=== PATIENT | female | born 1995 | race Hispanic/Latino ===

== ENCOUNTER 2025-04-17 06:41 | Emergency (ER) | payer SELFPAY ==
[~2025-04-17] VITALS: Ht 152.4 cm; Wt 88.9 kg
[2025-04-17 07:01] LABS: IMMATURE GRANULOCYTE ABSOLUTE 0.02 K/uL (0-1); NUCLEATED RED BLOOD CELLS 0.0 % (0.0-0.19); PLATELET COUNT (AUTO) 237 K/uL (130-400); RED BLOOD CELL COUNT(AUTO) 4.91 MIL/uL (4.00-5.50); RED CELL DISTRIBUTION WIDTH 13.8 % (11.0-15.5); WHITE BLOOD COUNT (AUTO) 5.6 K/uL (4.8-10.8)
[2025-04-17 07:09] LABS: APPEARANCE,URINE CLEAR (CLEAR); GLUCOSE, URINE (UA) NEGATIVE (NEGATIVE); LEUKOCYTE ESTERASE ,URINE NEGATIVE Leu/uL (NEGATIVE); NITRATE,URINE NEGATIVE (NEGATIVE); OCCULT BLOOD,URINE SMALL (NEGATIVE)
--- NOTE | 2025-04-17 07:10 | ERN ---
ED Note History of Present Illness Stated Complaint: RIGHT FLANK PAIN Chief Complaint: Flank Pain Time Seen by MD: 07:00 Dictation: This is a 29-year-old female who presented to the emergency room with a right flank pain off and on for a few weeks. In occasionally associated with nausea. No vomitings constipation or diarrhea no hematemesis or melena. No fever chills or rigors No known history of any cholelithiasis. No history of any dysuria or hematuria Temperature 98 pulse 75 respirations 18 blood pressure 144/89 with a pulse o ximetry of 98% on room air BMI is 38 Allergies: Coded Allergies: No Known Allergies (Verified Allergy, 08/24/12) Home Meds Active Scripts Dicyclomine HCl (Bentyl) 20 Mg Tab, 1 TAB PO BID for irritable bowel symptoms f or 10 Days, #20 TAB 0 Refills Prov:MARIA DEL CARMEN ROMERO MD 04/17/25 Past Medical History Past Medical History: No Pertinent History Surgical History: Family History: Negative LMP: Feb 08, 2025 RN Note Reviewed/Agreed w/PFSH: Yes Review of System Dictation Constitutional: Negative for fever,chills, and weight loss Eyes: Negative for injury, pain,redness, and discharge ENT: Negative for injury,pain or swelling Cardiovascular: Negative for chest pain, palpitations, and edema Respiratory: Negative for shortness of breath, cough, and wheezing, Abdomen/GI: Positive for right flank abdominal pain, nausea, denied vomiting, diarrhea, and constipation Back: Negative for injury and pain : Negative for injury, bleeding and discharge MS/Extremity: Negative for injury and deformity Skin: Negative for rash, and discoloration Neuro: Negative for headache, weakness, numbness, tingling, and seizure Psych: Negative for suicide ideation, homicidal ideation, and hallucinations Initial Vital Sign VS Vital Signs Date Time Temp Pulse Resp B/P (MAP) Pulse Ox O2 Delivery O2 Flow Rate FiO2 04/17/25 06:42 98.1 75 18 144/89 98 Room Air 0 04/17/25 07:06 21 Physical Exam Dictation General: awake, alert, NAD obese female Head/Face: Normocephalic, atraumatic Eyes: PERRL, EOMI, vision at baseline ENT: oral cavity clear, TMs clear, no signs of infection Neck: Trachea midline, supple, no nuchal rigidity Cardiovascular: RRR, normal S1/S2, No MRGs, no JVD Respiratory: CTAB, no respiratory distress, No rales or wheezes Abdomen: Soft, mildly tender in the right upper quadrant area, non-distended, normal bowel sounds, no guarding or rebound. Skin: Warm, dry, normal turgor, no rash MS/Extremity: Pulses equal, no cyanosis, neurovascular intact, FROM Neuro: COAx4, GCS 15, strength 5/5, CN 2-12 intact, normal cerebellar exam, normal gait, Psych: Normal behavior, mood, and affect normal Extremities-trace edema without any palpable cords, Homans sign is negative Results (Laboratory/Radiology) Laboratory/Radiology Laboratory Tests Test 04/17/25 06:53 04/17/25 06:56 White Blood Count 5.6 K/uL (4.8-10.8) Red Blood Count 4.91 MIL/uL (4.00-5.50) Hemoglobin 14.6 g/dL (12.0-16.0) Hematocrit 42.5 % (36-48) Mean Corpuscular Volume 86.6 fL (79-99) Mean Corpuscular Hemoglobin 29.7 pg (27.0-33.0) Mean Corpuscular Hemoglobin Concent 34.4 g/dL (32.0-36.0) Red Cell Distribution Width 13.8 % (11.0-15.5) Platelet Count 237 K/uL (130-400) Mean Platelet Volume 9.7 fL (7.5-10.5) Immature Granulocyte % (Auto) 0.4 % (0-1) Neutrophils (%) (Auto) 49.0 % (40.0-77.0) Lymphocytes (%) (Auto) 38.7 % (21.0-51.0) Monocytes (%) (Auto) 8.5 % (3.0-13.0) Eosinophils (%) (Auto) 2.9 % (0.0-8.0) Basophils (%) (Auto) 0.5 % (0.0-5.0) Neutrophils # (Auto) 2.7 K/uL (1.8-7.7) Lymphocytes # (Auto) 2.2 K/uL (1.0-4.8) Monocytes # (Auto) 0.5 K/uL (0.1-1.0) Eosinophils # (Auto) 0.16 K/uL (0.00-0.70) Basophils # (Auto) 0.03 K/uL (0.00-0.20) Absolute Immature Granulocyte (auto 0.02 K/uL (0-1) Nucleated Red Blood Cells 0.0 % (0.0-0.19) Sodium Level 136 mmol/L (136-145) Potassium Level 3.9 mmol/L (3.5-5.1) Chloride Level 101 mmol/L (101-111) Carbon Dioxide Level 28 mmol/L (21-32) Blood Urea Nitrogen 7 mg/dL (7-18) Creatinine 0.8 mg/dL (0.5-1.0) Glomerular Filtration Rate Calc 101 mL/min (>90) Random Glucose 128 mg/dL (70-105) H Total Calcium 8.3 mg/dL (8.5-10.1) L Total Bilirubin 0.3 mg/dL (0.2-1.0) Direct Bilirubin 0.1 mg/dL (0.0-0.3) Aspartate Amino Transf (AST/SGOT) 19 U/L (10-37) Alanine Aminotransferase (ALT/SGPT) 33 U/L (12-78) Alkaline Phosphatase 104 U/L (50-136) Total Protein 7.5 g/dL (6.0-8.3) Albumin 3.7 g/dL (3.5-5.0) Lipase 60 U/L (16-77) Serum Test, Qualitative NEGATIVE (NEGATIVE) Urine Color YELLOW (YELLOW) Urine Appearance CLEAR (CLEAR) Urine pH 5.5 (5.0-8.0) Urine Specific [place] 1.025 (1.001-1.031) Urine Protein NEGATIVE mg/dL (NEGATIVE) Urine Glucose (UA) NEGATIVE mg/dL (NEGATIVE) Urine Ketones NEGATIVE mg/dL (NEGATIVE) Urine Occult Blood SMALL (NEGATIVE) H Urine Nitrate NEGATIVE (NEGATIVE) Urine Bilirubin NEGATIVE mg/dL (NEGATIVE) Urine Urobilinogen 0.2 mg/dL (0.2-1.0) Urine Leukocyte Esterase NEGATIVE Jong/uL Urine RBC 0-1 /HPF (0-1) Urine WBC 0-1 /HPF (0-1) Urine Squamous Epithelial Cells 6-10 /HPF (0-2) Urine Bacteria Few /HPF (None Seen) Labs Reviewed?: Yes ED Course ED Course Orders Procedure Category Date Status Time Cbc With Differential LAB 04/17/25 Complete 06:44 Testing, LAB 04/17/25 Complete Serum Hcg 06:44 Urinalysis Profile LAB 04/17/25 Complete 06:44 Hepatic Function Panel LAB 04/17/25 Complete 06:48 Lipase LAB 04/17/25 Complete 06:48 Basic Metabolic Panel LAB 04/17/25 Complete 06:53 Ketorolac PHA 04/17/25 Complete Tromethamine 30mg/Ml 07:30 Ondansetron 4mg Inj PHA 04/17/25 Complete (Zofran 4mg Inj) 07:30 Us Abdominal Ruq\Ltd US 04/17/25 Resulted 07:16 Current Medications Medications (Trade) Dose Ordered Sig/Ivet Route PRN Reason Start Time Stop Time Status Last Admin Dose Admin Ketorolac Tromethamine (toRADol) 30 mg ONCE ONCE IVP 04/17/25 07:30 04/17/25 07:31 DC 04/17/25 07:56 Ondansetron HCl (zoFRAN 4MG INJ) 4 mg ONCE ONCE IVP 04/17/25 07:30 04/17/25 07:31 DC 04/17/25 07:55 Vital Signs Date Time Temp Pulse Resp B/P (MAP) Pulse Ox O2 Delivery O2 Flow Rate FiO2 04/17/25 08:59 98.1 60 18 131/73 98 Room Air* 0 04/17/25 08:11 98.1 65 18 142/75 98 Room Air* 0 04/17/25 07:06 68 17 133/73 100 Room Air* 0 04/17/25 06:42 98.1 75 18 144/89 98 Room Air 0 Medical Decision Making MDM Differential diagnosis: Gastritis, esophagitis, gastroesophageal reflux disease, biliary colic acute cholecystitis, peptic ulcer disease, gastroenteritis, colitis, constipation, pancreatitis Rationale: Tests considered and ordered secondary to shared decision making include: Previous outside records reviewed: Old ER visits. Risk of complication and/or morbidity or mortality of patient management: None Medications-Per medication reconciliation Need for hospitalization: Patient does not meet criteria for hospitalization. Need for emergency major/minor surgery: No There are no social concerns with this patient. Prescription drug management Prescriptions will include symptomatic care Patient's prior external medical records from other ER visits were reviewed by me as indicated. Prior testing and results from previous visits were reviewed. Prior tests were taken into account with medical decision making and resource utilization, independent historian/historians were used to obtain complete medical history. I independently interpreted the test that were performed, results were reviewed by me and considered findings on radiology if ordered. Medical management and examination interpretation discussions were had by me with other qualified healthcare professionals as indicated for the patient's care. 29-year-old female with handed off at shift change pending repeat evaluation of labs for right upper quadrant pain, stable exam vital signs stable no fever no white count, LFTs and T bili are stable, ultrasound showed biliary sludge but no signs of acute cholecystitis patient is stable for outpatient follow up. Problem List Problem List: (1) Biliary colic DX & DISP Disposition: Discharge Departure Impression: Primary Impression: Biliary colic Condition: Stable Scripts Dicyclomine HCl (Bentyl) 20 Mg Tab 1 TAB PO BID for irritable bowel symptoms for 10 Days, #20 TAB 0 Refills Prov: MARIA DEL CARMEN ROMERO MD 04/17/25 Additional Instructions: Patient and the caregiver have been informed of all the diagnostic tests and the imaging conducted during the today's visit to the emergency room and has verbalized understanding of the results I have personally reviewed and interpreted all diagnostic exams performed here in the ER today as well as the vital signs documented by the nursing staff. The patient is now being discharged to home and should follow up with the primary care physician or the specialist as directed by the ER staff. Counseled extensively on weight loss diet and exercise and lifestyle modifications, avoid fatty greasy foods that could trigger biliary colic. Referrals: EDY RUIZ Jr., MD (PCP) NILS VALDEZ MD Apr 17, 2025 07:10 MARIA DEL CARMEN ROMERO MD Apr 17, 2025 08:53
[2025-04-17 07:11] LABS: ADD UA MICROSCOPIC YES
[2025-04-17 07:18] LABS: CREATININE 0.8 mg/dL (0.5-1.0); GLOMERULAR FILTR. RATE CALC 101.0 mL/min (>90); GLUCOSE,RANDOM 128.0 mg/dL (70-105); SODIUM SERUM 136.0 mmol/L (136-145); TOTAL PROTEIN, SERUM 7.5 g/dL (6.0-8.3); UREA NITROGEN, BLOOD 7.0 mg/dL (7-18)
[2025-04-17 07:20] LABS: ASPARTATE AMINOTRANSFERASE 19.0 U/L (10-37)
--- NOTE | 2025-04-17 08:29 | HMCIMG ---
EXAM: US Abdomen, Right Upper Quadrant. CLINICAL HISTORY: gallbladder TECHNIQUE: Right upper quadrant sonography performed with image documentation. COMPARISON: None provided. FINDINGS: LIVER: Enlarged in size to 18 cm and increased echogenicity. No mass. GALLBLADDER: The gallbladder appears normal. No gallbladder wall thickening seen (0.2 cm). There are a few tiny calculi, the largest measuring 0.4 cm. Minimal sludge present. No perichole cystic fluid. COMMON BILE DUCT: Not dilated, measures 0.4 cm. PANCREAS: The visualized pancreas appears within normal limits. The distal pancreas is obscured by bowel gas. RIGHT KIDNEY: Unremarkable. Normal renal contours. No renal mass or calculus. No hydronephrosis. IMPRESSION: Mild hepatomegaly with steatosis. Cholelithiasis associated with minimal sludge. No features of cholecystitis. /[place]
[2025-04-17] MEDS ORDERED: DICY20TA2 PO (08:53)
[2025-04-17 08:59] VITALS: BP 131/73; PULSE 60; RESP 18; TEMP 98.1; O2SAT 98
== END 2025-04-17 09:06 | disposition home or self-care (01) ==
LOC: EDH 06:41
DX: K80.50 Calculus of bile duct without cholangitis or cholecystitis without obstruction (principal); Z98.890 Other specified postprocedural states
CPT/HCPCS: 99285; 96374; 76705; 96375; 80076; 80048; 84703; 83690; 85025; 81001; 36415; J1885; J2405